=== PATIENT | male | born 1960 | race Native Hawaiian/Other Pacific Islander ===

== ENCOUNTER 2016-09-18 13:47 | Outpatient (CLI) | payer BC ==
[~2016-09-18 13:47] MED LIST: FORTAMET500 MG PO; GABA400C2 PO; GLIP10TA55 PO; HYDR5TAB9 PO; MULTI VITAMIN D1 TAB PO; NYST100010 TOP; OMEP20CA PO; SIMV20TA2 PO; SOMA350 MG PO; TRICOR145 MG PO
== END 2016-09-18 19:25 | disposition home or self-care (01) ==
LOC: RAD 13:47
DX: M25.552 Pain in left hip (principal)

== ENCOUNTER 2016-09-19 07:56 | Outpatient (CLI) | payer BC | END 2016-09-19 19:07 | disposition home or self-care (01) | LOC: MRI 07:56 | DX: M54.17 Radiculopathy, lumbosacral region (principal) ==

== ENCOUNTER 2016-10-09 12:44 | Outpatient (CLI) | payer BC | END 2016-10-09 20:07 | disposition home or self-care (01) | LOC: RAD 12:44 | DX: J20.9 Acute bronchitis, unspecified (principal) ==

== ENCOUNTER 2017-03-27 00:08 | Inpatient (IN) | payer BC ==
[2017-03-27] VITALS (7 sets, daily range): BP systolic 127–140; BP diastolic 65–85; TEMP 97.8–101.5; Ht 180.3 cm; Wt 73.1 kg
[~2017-03-27] VITALS: Ht 180.3 cm; Wt 73.1 kg
[2017-03-27 01:00] LABS: PLATELET COUNT 261 K/uL (142-355)
[2017-03-27 01:07] LABS: POTASSIUM 3.5 mmol/L (3.6-5.2); SODIUM 134 mmol/L (136-145)
[2017-03-27] MEDS ORDERED: OXYC5TAB53 PO (01:31)
[2017-03-28] VITALS: BP 138/84; TEMP 98.1
[2017-03-28 04:00] VITALS: BP 131/74; TEMP 98.1
[2017-03-28 07:18] LABS: PLATELET COUNT 273 K/uL (142-355)
[2017-03-28 07:46] LABS: POTASSIUM 3.7 mmol/L (3.6-5.2); SODIUM 138 mmol/L (136-145)
[2017-03-28 08:19] VITALS: BP 125/74; TEMP 98.1
[2017-03-28 12:00] VITALS: BP 153/81; TEMP 97.2
[2017-03-28 16:00] VITALS: BP 146/70; TEMP 97.8
[2017-03-28 20:00] VITALS: BP 144/82; TEMP 98
[2017-03-29] VITALS: BP 138/78; TEMP 97.7
[2017-03-29 04:00] VITALS: BP 134/83; TEMP 98.6
[2017-03-29 05:24] LABS: PLATELET COUNT 281 K/uL (142-355)
[2017-03-29 05:54] LABS: POTASSIUM 3.4 mmol/L (3.6-5.2); SODIUM 141 mmol/L (136-145)
[2017-03-29 08:00] VITALS: BP 181/82; TEMP 97.8
[2017-03-29 12:00] VITALS: BP 143/86; TEMP 97.5
[2017-03-29 16:00] VITALS: BP 148/55; TEMP 98.9
[2017-03-29 20:00] VITALS: BP 152/86; TEMP 97.8
[2017-03-30] VITALS: BP 127/70; TEMP 97.9
[2017-03-30 04:00] VITALS: BP 143/86; TEMP 97.8
[2017-03-30 05:38] LABS: PLATELET COUNT 317 K/uL (142-355)
[2017-03-30 05:49] LABS: POTASSIUM 3.6 mmol/L (3.6-5.2); SODIUM 138 mmol/L (136-145)
[2017-03-30 08:00] VITALS: BP 137/79; TEMP 97.5
[2017-03-30 12:00] VITALS: BP 139/72; TEMP 98.4
[2017-03-30 16:00] VITALS: BP 142/76; TEMP 98.6
--- NOTE | 2017-03-30 17:00 | NUR ---
DR. HOLLOWAY HERE TO SEE PATIENT'S. DISCHRGE ORDERS RECEIVED, PRESCRIPTIONS CALLED IN TO [facility]. IV REMOVED, BANDAID APPLIED.
== END 2017-03-30 18:45 | disposition home or self-care (01) | DRG 195 ==
LOC: ED 00:08 → MED/SURG 01:20
PROVIDERS: ADMIT Family Medicine
DX: J18.8 Other pneumonia, unspecified organism (principal); R06.2 Wheezing; E13.65 Other specified diabetes mellitus with hyperglycemia; I10 Essential (primary) hypertension; Z91.19 Patient's noncompliance with other medical treatment and regimen
CPT/HCPCS: 36415; 80053; 80202; 82550; 82805; 82948; 83735; 84484; 85027; 87040; 87081; 87880; 93005; 94664; 94668; 94760; 96361; 96365; 99284; J0696; J1885; J2930; Q9963

== ENCOUNTER 2017-04-03 21:39 | Emergency (ER) | payer BC ==
[~2017-04-03] VITALS: Ht 180.3 cm; Wt 68.9 kg
[~2017-04-03 21:39] MED LIST changes: +OXYC5TAB53 PO
[2017-04-03 22:40] LABS: PLATELET COUNT 469 K/uL (142-355)
[2017-04-03 22:43] LABS: POTASSIUM 3.8 mmol/L (3.6-5.2); SODIUM 132 mmol/L (136-145)
[2017-04-03 22:49] VITALS: BP 138/66; TEMP 98.5
== END 2017-04-03 22:44 | disposition home or self-care (01) ==
LOC: ED 21:39
DX: R21 Rash and other nonspecific skin eruption (principal)
CPT/HCPCS: 36415; 80053; 85007; 85027; 96360; 96375; 99284; J1100; J1200

== ENCOUNTER 2017-04-12 13:47 | Outpatient (CLI) | payer BC | END 2017-04-12 20:00 | disposition home or self-care (01) | LOC: RESP 13:47 | DX: R06.02 Shortness of breath (principal); M81.0 Age-related osteoporosis without current pathological fracture | CPT/HCPCS: J1100 ==

== ENCOUNTER 2019-03-26 11:36 | Outpatient (CLI) | payer BC | END 2019-03-26 23:44 | disposition home or self-care (01) | LOC: RAD 11:36 | DX: M25.531 Pain in right wrist (principal) ==

== ENCOUNTER 2019-11-20 10:06 | Outpatient (CLI) | payer BC | END 2019-11-20 22:44 | disposition home or self-care (01) | LOC: RAD 10:06 | DX: Z13.820 Encounter for screening for osteoporosis (principal) ==

== ENCOUNTER 2022-08-01 09:25 | Outpatient (CLI) | payer OTHER | END 2022-08-01 20:11 | disposition home or self-care (01) | LOC: CT 09:25 | PROVIDERS: ATTEND Family Medicine | DX: I10 Essential (primary) hypertension (principal); Z13.6 Encounter for screening for cardiovascular disorders; F17.210 Nicotine dependence, cigarettes, uncomplicated ==

== ENCOUNTER 2022-08-10 07:54 | Outpatient (CLI) | payer OTHER | END 2022-08-10 18:58 | disposition home or self-care (01) | LOC: NM 07:54 | PROVIDERS: ATTEND Family Medicine | DX: I10 Essential (primary) hypertension (principal); Z72.0 Tobacco use; Z13.6 Encounter for screening for cardiovascular disorders; Z79.899 Other long term (current) drug therapy | CPT/HCPCS: A9500 ==

== ENCOUNTER 2022-12-14 14:17 | Emergency (ER) | payer OTHER, BC ==
[~2022-12-14] VITALS: Ht 180.3 cm; Wt 77.1 kg
[2022-12-14 14:20] VITALS: TEMP 98.3
[2022-12-14 15:38] VITALS: BP 150/76
== END 2022-12-14 16:17 | disposition home or self-care (01) ==
LOC: ED 14:17
DX: S50.11XA Contusion of right forearm, initial encounter (principal); S40.211A Abrasion of right shoulder, initial encounter; R20.2 Paresthesia of skin; R07.81 Pleurodynia; N40.0 Benign prostatic hyperplasia without lower urinary tract symptoms; V43.63XA Car passenger injured in collision with pick-up truck in traffic accident, initial encounter; Y92.488 Other paved roadways as the place of occurrence of the external cause
CPT/HCPCS: 90471; 90715; 96372; 99283